=== PATIENT | female | born 1960 | race Caucasian/White ===

== ENCOUNTER 2018-05-02 12:52 | Emergency (ER) | payer OTHER ==
[~2018-05-02] VITALS: Ht 165.1 cm; Wt 60.0 kg
[2018-05-02 13:15] VITALS: BP 97/57
[2018-05-02] MEDS ORDERED: IBUPROFEN 200 MG TABLET PO ONE (14:30)
[2018-05-02] MEDS ORDERED: HYDROcodone/APAP 5/325 TABLET PO ONE (14:30)
[2018-05-02] MEDS ORDERED: HYDROcodone/APAP 5/325 TABLET ONE (14:36)
[2018-05-02] MEDS ORDERED: IBUPROFEN 200 MG TABLET ONE (14:36)
== END 2018-05-02 15:01 | disposition home or self-care (01) ==
LOC: ED 14:55
DX: S22.32XA Fracture of one rib, left side, initial encounter for closed fracture (principal); S20.212A Contusion of left front wall of thorax, initial encounter; W22.09XA Striking against other stationary object, initial encounter; Y93.89 Activity, other specified; Y99.8 Other external cause status; Y92.009 Unspecified place in unspecified non-institutional (private) residence as the place of occurrence of the external cause
CPT/HCPCS: 99284